=== PATIENT | male | born 1980 | race Caucasian/White ===

== ENCOUNTER 2017-06-26 22:18 | Emergency (ER) | payer OTHER ==
[~2017-06-26] VITALS: Ht 175.3 cm; Wt 80.7 kg
[2017-06-26 22:44] VITALS: Ht 175.3 cm; Wt 80.7 kg
[2017-06-27 00:06] VITALS: BP 135/75
== END 2017-06-27 00:06 | disposition home or self-care (01) ==
LOC: ED 22:18
DX: R59.0 Localized enlarged lymph nodes (principal)